=== PATIENT | female | born 1965 | race American Indian/Alaskan Native ===

== ENCOUNTER 2018-01-15 17:28 | Emergency (ER) | payer MEDICAID ==
[2018-01-15 18:17] VITALS: TEMP 98.8; BMI 43.4
--- NOTE | 2018-01-15 21:29 | ED PDOC ---
Arrival/HPI - General Historian: Patient - History of Present Illness Time/Duration: Other (01/07/2018) Symptom Onset: Gradual Symptom Course: Worsening Quality: Aching, Burning, Throbbing Severity Level: 6, 9 - General Chief Complaint: Abnormal Skin Integrity Time Seen by Provider: 01/15/18 20:38 - History of Present Illness Narrative History of Present Illness (Text): 01/15/18 22:18 52-year-old female presents today with painful rash to the left flank since . Patient states she noticed red bumps and severe burning pain to the left flank. Patient states the pain has gotten severe so she has come to the emergency room for evaluation she denies chest pain or shortness of breath. Denies fevers or chills. Patient states she has had the chickenpox when she was younger. No dizziness or weakness. No medications have been taken for pain at home and no other complaints (Madeleine Gu) Past Medical History - Provider Review Nursing Documentation Reviewed: Yes - Travel History Have you recently traveled outside [place] w/in the past 3 mons?: No - Infectious Disease Hx of Infectious Diseases: None - Cardiac Hx Cardiac Disorders: Yes Hx Hypertension: Yes - Pulmonary Hx Respiratory Disorders: Yes Hx Asthma: Yes - Neurological Hx Neurological Disorder: No - HEENT Hx HEENT Disorder: Yes Other/Comment: wears glasses - Renal Hx Renal Disorder: No - Endocrine/Metabolic Hx Endocrine Disorders: No - Hematological/Oncological Hx Blood Disorders: No - Integumentary Hx Dermatological Disorder: No - Musculoskeletal/Rheumatological Hx Musculoskeletal Disorders: No - Gastrointestinal Hx Gastrointestinal Disorders: No - Genitourinary/Gynecological Hx Genitourinary Disorders: No - Psychiatric Hx Psychophysiologic Disorder: No Hx Substance Use: No - Surgical History Other/Comment: ovarian cyst removed 2000 - Anesthesia Hx Anesthesia: Yes Hx Anesthesia Reactions: Yes (vomiting) Hx Malignant Hyperthermia: No Family/Social History - Physician Review Nursing Documentation Reviewed: Yes Family/Social History: Unknown Family HX Smoking Status: Never Smoked Hx Alcohol Use: No Hx Substance Use: No Allergies/Home Meds Allergies/Adverse Reactions: Allergies No Known Allergies Allergy (Verified 01/15/18 20:22) Review of Systems - Review of Systems Constitutional: absent: Fatigue, Fevers Respiratory: absent: SOB, Cough Cardiovascular: absent: Chest Pain, Palpitations Gastrointestinal: absent: Abdominal Pain, Nausea, Vomiting Musculoskeletal: absent: Arthralgias, Neck Pain Skin: Rash Neurological: absent: Headache, Dizziness Psychiatric: absent: Anxiety Physical Exam Vital Signs Reviewed: Yes Temperature: Afebrile Blood Pressure: Normal Pulse: Regular Respiratory Rate: Normal Appearance: Positive for: Well-Appearing, Non-Toxic, Comfortable Pain Distress: None Mental Status: Positive for: Alert and Oriented X 3 - Systems Exam Head: Present: Atraumatic Mouth: Present: Moist Mucous Membranes Neck: Present: Normal Range of Motion Respiratory/Chest: Present: Clear to Auscultation, Good Air Exchange. No: Respiratory Distress, Accessory Muscle Use Cardiovascular: Present: Regular Rate and Rhythm, Normal S1, S2. No: Murmurs Abdomen: No: Tenderness, Rebound, Guarding Back: No: Midline Tenderness, Paraspinal Tenderness Upper Extremity: Present: Normal ROM Lower Extremity: Present: Normal ROM Neurological: Present: GCS=15, Speech Normal Skin: Present: Warm, Dry, Rashes (there are multiple patches of vesicles on erythematous base noted to left approx T8 dermatome; does not cross midline. ) Psychiatric: Present: Alert, Oriented x 3 Vital Signs Temp Pulse Resp BP Pulse Ox 01/15/18 21:36 65 17 130/85 99 01/15/18 18:14 98.8 F 63 18 134/87 96 Medical Decision Making ED Course and Treatment: 01/15/18 22:23 52-year-old female presents today with a rash to the left flank. Rashes consistent with shingles along the approximate T8 dermatome Valtrex given by mouth Toradol given for pain Patient was advised to take medications as prescribed and follow-up with the primary care physician within the next 2 days. Patient was advised to avoid women and children. Patient was advised may return if symptoms worsen or persist or if new concerning symptoms develop Patient verbalizes understanding of discharge instructions and need for immediate followup. all aspects of this case were discussed the attending of record. Impression: Shingles Motrin every 6 hours as needed for pain Percocet 1 tablet every 6 hours as needed for moderate to severe painful and may cause drowsiness Valtrex 1 tablet 3 times daily for 7 days Follow-up with primary care physician within the next few days Return if symptoms worsen persist concerning symptoms develop (Madeleine uG ) - Medication Orders Current Medication Orders: Discontinued Medications Ketorolac Tromethamine (Toradol) 60 mg IM STAT STA Stop: 01/15/18 20:39 Last Admin: 01/15/18 21:13 Dose: 60 mg MAR Pain Assessment Document 01/15/18 21:13 SF (Rec: 01/15/18 21:13 SF [id number]) Pain Reassessment Is this a pain reassessment? Yes Sleep Is patient sleeping during reassessment? No Presence of Pain Presence of Pain Yes IM Administration Charges Document 01/15/18 21:13 SF (Rec: 01/15/18 21:13 SF [id number]) Injection Site MAR Injection Site Left Deltoid Charges for Administration # of IM Administrations 1 Valacyclovir HCl (Valtrex) 1 gm PO STAT STA PRN Reason: Protocol Stop: 01/15/18 20:39 Last Admin: 01/15/18 21:14 Dose: 1 gm Disposition/Present on Arrival - Present on Arrival Any Indicators Present on Arrival: No History of DVT/PE: No History of Uncontrolled Diabetes: No Urinary Catheter: No History of Decub. Ulcer: No History Surgical Site Infection Following: None - Disposition Have Diagnosis and Disposition been Completed?: Yes Disposition Time: 21:26 Patient Plan: Discharge - Disposition Diagnosis: Shingles Disposition: HOME/ ROUTINE Condition: GOOD Discharge Instructions (ExitCare): Shingles (ED) Additional Instructions: Motrin every 6 hours as needed for pain Percocet 1 tablet every 6 hours as needed for moderate to severe painful and may cause drowsiness Valtrex 1 tablet 3 times daily for 7 days Follow-up with primary care physician within the next few days Return if symptoms worsen persist concerning symptoms develop Prescriptions: Ibuprofen [Motrin] 600 mg PO Q6H PRN #20 tab PRN Reason: pain/fever reduction oxyCODONE/Acetaminophen [Percocet 5/325 mg Tab] 1 tab PO Q6H PRN #10 tab PRN Reason: moderate to severe pain valACYclovir [Valtrex] 1 gm PO TID #21 tab Referrals: Campbell Harrell MD [Primary Care Provider] - Follow up with primary Reji Ortiz MD [Staff Provider] - Follow up with primary Debra Connor MD [Staff Provider] - Follow up with primary Forms: [employer] (Bengali), WORK NOTE
[2018-01-15 21:38] VITALS: BP 130/85; PULSE 65; RESP 17; O2SAT 99
== END 2018-01-15 21:38 | disposition home or self-care (01) ==
LOC: ED 17:28
DX: B02.9 Zoster without complications (principal)
CPT/HCPCS: 96372; 99284; J1885